=== PATIENT | male | born 1955 | race Caucasian/White ===

== ENCOUNTER 2020-10-13 16:31 | Emergency (ER) | payer MEDICARE, OTHER ==
[~2020-10-13] VITALS: Ht 182.9 cm; Wt 72.7 kg
[2020-10-13] MEDS ORDERED: METO25XL PO (16:41)
[2020-10-13] MEDS ORDERED: BENZ1TAB10 PO (16:47)
[2020-10-13] MEDS ORDERED: CLOP75TA32 PO (16:47)
[2020-10-13] MEDS ORDERED: TRAZ-257 PO (16:47)
[2020-10-13] MEDS ORDERED: NITR0.4T50 SL (16:47)
[2020-10-13] MEDS ORDERED: ISOS120T14 PO (16:47)
[2020-10-13] MEDS ORDERED: METO25 PO (16:47)
[2020-10-13] MEDS ORDERED: PENT400T72 PO (16:47)
[2020-10-13] MEDS ORDERED: RISP4TAB73 PO (16:47)
[2020-10-13] MEDS ORDERED: DULO-8 PO (16:47)
[2020-10-13] MEDS ORDERED: FAMO20 PO (16:47)
[2020-10-13 19:52] LABS: COVID AG,FIA SOURCE NASOPHARYNGEAL
[2020-10-13 21:05] VITALS: BP 126/68
== END 2020-10-13 21:19 | disposition home or self-care (01) ==
LOC: EMS 16:33
DX: U07.1 COVID-19 (principal); J06.9 Acute upper respiratory infection, unspecified; M79.10 Myalgia, unspecified site
CPT/HCPCS: 87426; 99283; U0003